=== PATIENT | female | born 1960 | race African-American/Black ===

== ENCOUNTER 2025-03-23 06:49 | Day surgery (SDC) | payer MEDICARE, OTHER ==
[~2025-03-23] VITALS: Ht 167.6 cm; Wt 77.7 kg
[~2025-03-23 06:49] MED LIST: TEMA30CA PO; ZOLP-162 PO
[2025-03-23] MEDS ORDERED: SODIUM CHLORIDE 0.9% 1,000 ML ONE (06:52)
[2025-03-23] MEDS ORDERED: ALBU18HF12 IH (07:38)
[2025-03-23] MEDS ORDERED: ROSU10TA72 PO (07:38)
[2025-03-23] MEDS ORDERED: DULA4.5P SQ (07:38)
[2025-03-23] MEDS ORDERED: INSU100I24 SQ (07:38)
[2025-03-23] MEDS ORDERED: RANO500T27 PO (07:38)
[2025-03-23] MEDS ORDERED: INSU100I3 SQ (07:38)
[2025-03-23] MEDS ORDERED: QUET25TA PO (07:38)
[2025-03-23] MEDS ORDERED: METO50 PO (07:38)
[2025-03-23] MEDS ORDERED: PREG75 PO (07:38)
[2025-03-23] MEDS ORDERED: FAMO20 PO (07:38)
[2025-03-23] MEDS ORDERED: MONT-35 PO (07:38)
[2025-03-23] MEDS ORDERED: MYCO250C27 PO (07:38)
[2025-03-23] MEDS ORDERED: FLUT12AE3 IH (07:38)
[2025-03-23] MEDS ORDERED: FLUT16SP NASAL (07:38)
[2025-03-23] MEDS ORDERED: EZET10TA57 PO (07:38)
[2025-03-23] MEDS ORDERED: CHOL500013 PO (07:41)
[2025-03-23] MEDS ORDERED: PLEC3TAB2 PO (07:41)
[2025-03-23] MEDS: SODIUM CHLORIDE 0.9% 1,000 ML IV ONE (07:59)
[2025-03-23] MEDS ORDERED: FentaNYL CITRATE PF 100 MCG/2 ML VIAL ONE (08:02)
[2025-03-23] MEDS ORDERED: MIDAZOLAM HCL 2 MG/2 ML VIAL ONE (08:03)
[2025-03-23 08:10] LABS: GLUCOMETER DEV NAME(LOC) SDS.; GLUCOSE,POINT OF CARE 105 MG/DL (70-110)
[2025-03-23 09:10] VITALS: PULSE 53; RESP 18; O2SAT 99
[2025-03-23] MEDS ORDERED: MethylPREDNISolone SOD SUCC 125 MG/2 ML VIAL ONE (09:32)
[2025-03-23] MEDS: MethylPREDNISolone SOD SUCC 125 MG/2 ML VIAL IVP ONE (09:40)
[2025-03-23] MEDS ORDERED: BENZOCAINE 20% 50 MCG/SPRAY 57 GM ONE (12:00)
[2025-03-23] MEDS ORDERED: LIDOCAINE 4% 50 ML SOLUTION ONE (12:00)
[2025-03-23] MEDS ORDERED: ALBUTEROL SULFATE 2.5 MG/0.5 ML NEB SOLUTION NEB ONE (12:00)
[2025-03-23] MEDS ORDERED: LIDOCAINE 2% 11 ML JELLY ONE (12:00)
== END 2025-03-23 13:15 | disposition home or self-care (01) ==
LOC: SURGERY 06:49
PROVIDERS: ATTEND Internal Medicine Critical Care Medicine
DX: J38.4 Edema of larynx (principal); B37.0 Candidal stomatitis; G47.30 Sleep apnea, unspecified; I42.9 Cardiomyopathy, unspecified; I10 Essential (primary) hypertension; E78.00 Pure hypercholesterolemia, unspecified; Z88.8 Allergy status to other drugs, medicaments and biological substances; Z79.899 Other long term (current) drug therapy
CPT/HCPCS: 31623; 82962; 87206; 87101; 87220; 87070; 88108; 31624; 71045; 87015; J3010; J2250; J2919; J7030; J7613; Z7610